=== PATIENT | female | born 1955 | race Caucasian/White ===

== ENCOUNTER 2020-08-26 13:00 | Emergency (ER) | payer BC | END 2020-08-26 16:58 | disposition home or self-care (01) | LOC: JVIRT 13:00 | DX: Z11.59 Encounter for screening for other viral diseases (principal) | CPT/HCPCS: C9803; Q3014-GT; U0003 ==

== ENCOUNTER 2023-09-19 06:05 | Day surgery (SDC) | payer BC ==
[2023-09-17 13:55] VITALS: BMI 27.3
[2023-09-19] MEDS ORDERED: FENTANYL CITRATE/PF 50 MCG/ML VIAL ONE (07:18)
[2023-09-19] MEDS ORDERED: BUPIVACAINE LIPOSOME/PF (EXPAREL) 266 MG/20 ML VIAL ONE (07:18)
[2023-09-19] MEDS ORDERED: MIDAZOLAM HCL 2 MG/2 ML SINGLE DOSE VIAL ONE ×3 (07:18→09:08)
[2023-09-19] MEDS ORDERED: BUPIVACAINE HCL/PF 2.5 MG/ML - 30 ML VIAL IJ ONE (07:19)
[2023-09-19] MEDS ORDERED: TRANEXAMIC ACID 1000 MG/10 ML VIAL IVPUSH ONE (08:00)
[2023-09-19] MEDS ORDERED: PROPOFOL 40 ML ONE (08:09)
[2023-09-19] MEDS ORDERED: SUCCINYLCHOLINE CHLORIDE 200 MG/10 ML SYRINGE ONE (08:22)
[2023-09-19] MEDS ORDERED: TRANEXAMIC ACID 1000 MG/10 ML VIAL ONE (09:12)
[2023-09-19] MEDS ORDERED: PROPOFOL 20 ML ONE (09:33)
[2023-09-19] MEDS ORDERED: MAGNESIUM HYDROX 2400MG/30ML ORAL SUSPENSION 30 ML CUP PO PRN (10:07)
[2023-09-19] MEDS ORDERED: ONDANSETRON 4 MG/2 ML VIAL IVPUSH PRN ×2 (10:07→10:19)
[2023-09-19] MEDS ORDERED: MAG HYDROX/AL HYDROX/SIMETH 30 ML UNIT-DOSE CUP PO PRN (10:07)
[2023-09-19] MEDS ORDERED: oxyCODONE HCL 5 MG TABLET PO PRN (10:19)
[2023-09-19] MEDS ORDERED: ACETAMINOPHEN INJECTION 100 ML IVPB ONE (10:42)
[2023-09-19] MEDS: ACETAMINOPHEN 1000 MG/100 ML BAG IVPB SCH ×2 (10:50→20:10)
[2023-09-19] MEDS: oxyCODONE HCL 5 MG TABLET PO PRN ×2 (14:26→17:50)
[2023-09-19] MEDS: SODIUM CHLORIDE 1,000 ML IV SCH (14:29)
[2023-09-19] MEDS ORDERED: ACETAMINOPHEN 1000 MG/100 ML BAG IVPB SCH (15:00)
[2023-09-19] MEDS ORDERED: TRANEXAMIC ACID 1000 MG/10 ML VIAL IVPB ONE (15:00)
[2023-09-19] MEDS: CEFAZOLIN SODIUM 2 GM in DEXTROSE 5%-WATER 100 ML IVPB SCH (15:30)
[2023-09-19] MEDS ORDERED: HYDROmorphone HCl 2 MG/ML VIAL ONE (16:31)
[2023-09-19] MEDS ORDERED: HYDROmorphone HCl 2 MG/ML VIAL IVPB PRN (17:16)
[2023-09-19 19:32] VITALS: RESP 18
[2023-09-19] MEDS ORDERED: KETOROLAC TROMETHAMINE 30 MG/1 ML VIAL IM ONE (20:56)
[2023-09-19] MEDS ORDERED: KETOROLAC TROMETHAMINE 30 MG/1 ML VIAL IVPUSH ONE (21:05)
[2023-09-19] MEDS ORDERED: CYCLOBENZAPRINE HCL 10 MG TABLET (FP) PO PRN (21:05)
[2023-09-19] MEDS: CELECOXIB 100 MG CAPSULE PO SCH (21:53)
[2023-09-19] MEDS: DEXAMETHASONE 4 MG TABLET (FP) PO SCH (21:59)
[2023-09-19] MEDS: SENNOSIDES/DOCUSATE COMBO (SENNA PLUS) TABLET (UD) PO SCH (22:00)
[2023-09-19] MEDS: FAMOTIDINE 20 MG TABLET PO SCH (22:00)
[2023-09-19] MEDS ORDERED: LISINOPRIL 5 MG TABLET PO SCH (22:00)
[2023-09-19] MEDS ORDERED: ATORVASTATIN CA 10 MG TABLET (FP) PO SCH (22:00)
[2023-09-20] MEDS: CEFAZOLIN SODIUM 2 GM in DEXTROSE 5%-WATER 100 ML IVPB SCH (00:01)
[2023-09-20] MEDS ORDERED: TRANEXAMIC ACID 1000 MG/10 ML VIAL IVPUSH ONE (01:00)
[2023-09-20] MEDS: ACETAMINOPHEN 1000 MG/100 ML BAG IVPB SCH (02:25)
[2023-09-20] MEDS: LEVOTHYROXINE NA 75 MCG TABLET (FP) PO SCH ×2 (06:42→09:29)
[2023-09-20] MEDS: oxyCODONE HCL 5 MG TABLET PO PRN ×2 (07:33→11:50)
[2023-09-20] MEDS ORDERED: KETOROLAC TROMETHAMINE 15 MG/ML VIAL IVPUSH PRN (08:56)
[2023-09-20] MEDS: CELECOXIB 100 MG CAPSULE PO SCH (09:28)
[2023-09-20] MEDS: DEXAMETHASONE 4 MG TABLET (FP) PO SCH (09:29)
[2023-09-20] MEDS: SENNOSIDES/DOCUSATE COMBO (SENNA PLUS) TABLET (UD) PO SCH (09:29)
[2023-09-20] MEDS: FAMOTIDINE 20 MG TABLET PO SCH (09:32)
[2023-09-20] MEDS ORDERED: MULTIVITAMINS (DAILY MVI) TABLET (FP) PO SCH (10:00)
[2023-09-20] MEDS ORDERED: ATOMOXETINE HCL 40 MG CAPSULE PO SCH (10:00)
[2023-09-20] MEDS ORDERED: MAGNESIUM OXIDE 400 MG TABLET (FP) PO SCH (10:00)
[2023-09-20] MEDS ORDERED: ACETAMINOPHEN 500 MG TABLET (FP) PO SCH (11:00)
[2023-09-20 12:10] VITALS: BP 130/59; PULSE 74; TEMP 99.5
[2023-09-20] MEDS: SODIUM CHLORIDE 1,000 ML IV SCH (13:27)
[2023-09-20] MEDS ORDERED: ASPIRIN 81 MG CHEWABLE TABLETS PO SCH (22:00)
== END 2023-09-20 13:27 | disposition home or self-care (01) ==
LOC: FASUSAT 06:05 → FM/S 11:51 → FASUSAT 09-20 13:27
PROVIDERS: ATTEND Orthopaedic Surgery
PROC: 0SRD0J9 Replacement of Left Knee Joint with Synthetic Substitute, Cemented, Open Approach (ICD-10-PCS; principal; 2023-09-19 08:29)
DX: M17.12 Unilateral primary osteoarthritis, left knee (principal)
CPT/HCPCS: 27447; C1776; 73560-TC-LT-FY; 94760; 97010-GP; 97116-GP; 97163-GP; C1889

== ENCOUNTER 2024-09-17 08:11 | Inpatient (IN) | payer OTHER, MEDICARE ==
[2024-09-15 16:58] VITALS: BMI 29.2
[2024-09-17] MEDS ORDERED: FENTANYL CITRATE/PF 50 MCG/ML VIAL ONE (10:22)
[2024-09-17] MEDS ORDERED: MIDAZOLAM HCL 2 MG/2 ML SINGLE DOSE VIAL ONE ×2 (10:22→11:27)
[2024-09-17] MEDS ORDERED: BUPIVACAINE LIPOSOME/PF (EXPAREL) 266 MG/20 ML VIAL ONE (10:22)
[2024-09-17] MEDS ORDERED: BUPIVACAINE HCL/PF 0.5% (5MG/ML) 10 ML VIAL ONE (10:22)
[2024-09-17] MEDS ORDERED: TRANEXAMIC ACID 1000 MG/10 ML VIAL ONE ×2 (11:18→12:18)
[2024-09-17] MEDS ORDERED: ceFAZolin SODIUM 1 GM VIAL ONE (11:18)
[2024-09-17] MEDS ORDERED: DEXAMETHASONE SOD PHOSPHATE 4 MG/1 ML VIAL ONE (11:44)
[2024-09-17] MEDS ORDERED: ONDANSETRON 4 MG/2 ML VIAL ONE (11:44)
[2024-09-17] MEDS ORDERED: oxyCODONE HCL 5 MG TABLET PO PRN ×2 (12:15)
[2024-09-17] MEDS ORDERED: ONDANSETRON 4 MG/2 ML VIAL IVPUSH PRN ×2 (12:38→13:16)
[2024-09-17] MEDS ORDERED: MAG HYDROX/AL HYDROX/SIMETH 30 ML UNIT-DOSE CUP PO PRN (13:16)
[2024-09-17] MEDS ORDERED: MAGNESIUM HYDROX 2400MG/30ML ORAL SUSPENSION 30 ML CUP PO PRN (13:16)
[2024-09-17] MEDS: KETOROLAC TROMETHAMINE 30 MG/1 ML VIAL IVPUSH SCH (13:30)
[2024-09-17] MEDS ORDERED: KETOROLAC TROMETHAMINE 30 MG/1 ML VIAL ONE (13:32)
[2024-09-17] MEDS: ACETAMINOPHEN 1000 MG/100 ML BAG IVPB ONE (13:40)
[2024-09-17] MEDS: LACTATED RINGERS SOLUTION 1,000 ML IV SCH (14:47)
[2024-09-17] MEDS: TRANEXAMIC ACID 1000 MG/10 ML VIAL IVPUSH ONE (14:47)
[2024-09-17] MEDS: ACETAMINOPHEN 1000 MG/100 ML BAG IVPB SCH (14:48)
[2024-09-17] MEDS: ACETAMINOPHEN 500 MG TABLET (FP) PO SCH (14:49)
[2024-09-17] MEDS: CEFAZOLIN SODIUM 2 GM in DEXTROSE 5%-WATER 100 ML IVPB SCH (17:42)
[2024-09-17] MEDS: ASCORBIC ACID 500 MG TABLET (FP) PO SCH (21:00)
[2024-09-17] MEDS: TRANEXAMIC ACID 1000 MG/10 ML VIAL IVPUSH SCH (21:00)
[2024-09-17] MEDS: ASPIRIN 81 MG CHEWABLE TABLETS PO SCH (21:00)
[2024-09-17] MEDS: LISINOPRIL 5 MG TABLET PO SCH (21:01)
[2024-09-17] MEDS: MAGNESIUM OXIDE 400 MG TABLET (FP) PO SCH (21:01)
[2024-09-17] MEDS: SENNOSIDES/DOCUSATE COMBO (SENNA PLUS) TABLET (UD) PO SCH (21:01)
[2024-09-17] MEDS: CHOLECALCIFEROL (VIT D3) 1,000 UNIT (25 MCG) TABLET PO SCH (21:01)
[2024-09-17] MEDS: FAMOTIDINE 20 MG TABLET PO SCH (21:01)
[2024-09-17] MEDS: ATORVASTATIN CA 10 MG TABLET (FP) PO SCH (21:01)
[2024-09-17] MEDS: CELECOXIB 100 MG CAPSULE PO SCH (21:01)
[2024-09-17] MEDS: DEXAMETHASONE 4 MG TABLET (FP) PO SCH (21:02)
[2024-09-17] MEDS: oxyCODONE HCL 10 MG SUSTAINED ACTING TABLET PO SCH (21:04)
[2024-09-18] MEDS: LEVOTHYROXINE NA 75 MCG TABLET (FP) PO SCH (06:01)
[2024-09-18] MEDS: ATOMOXETINE HCL 40 MG CAPSULE PO SCH (09:10)
[2024-09-18] MEDS: MULTIVITAMINS (DAILY MVI) TABLET (FP) PO SCH (09:10)
[2024-09-18] MEDS: PYRIDOXINE HCL (B-6) 50 MG TABLET (FP) PO SCH (09:10)
[2024-09-18] MEDS ORDERED: PATIENT'S OWN MEDICATION (NON-FORMULARY) (Ubidecarenone [Co Q-10] 200 MG Capsule) PO SCH (10:00)
[2024-09-18 13:51] VITALS: BP 110/58; PULSE 68; RESP 17; TEMP 97.5
== END 2024-09-18 15:12 | disposition home or self-care (01) | DRG 470 ==
LOC: FM/S 08:11
PROVIDERS: ADMIT Orthopaedic Surgery; ATTEND Orthopaedic Surgery
PROC: 0SRC0J9 Replacement of Right Knee Joint with Synthetic Substitute, Cemented, Open Approach (ICD-10-PCS; principal; 2024-09-17 11:30)
DX: M17.11 Unilateral primary osteoarthritis, right knee (principal)
CPT/HCPCS: 73560-TC-RT-FY; 94760; 97010-GP; 97116-GP; 97162-GP; C1776; J0131